=== PATIENT | male | born 1990 | race American Indian/Alaskan Native ===

== ENCOUNTER 2022-04-07 21:37 | Emergency (ER) | payer SELFPAY ==
[2022-04-07 22:02] VITALS: BP 108/71
== END 2022-04-08 07:00 | disposition left against medical advice (07) ==
LOC: ED 21:37
DX: K21.9 Gastro-esophageal reflux disease without esophagitis (principal); Z53.21 Procedure and treatment not carried out due to patient leaving prior to being seen by health care provider; R06.02 Shortness of breath